=== PATIENT | male | born 1975 | race Caucasian/White ===

== ENCOUNTER 2018-07-22 05:22 | Day surgery (SDC) | payer OTHER ==
[~2018-07-22] VITALS: Ht 190.5 cm; Wt 83.0 kg
--- NOTE | ~2018-07-22 | O ---
[facility] [place] [address] OPERATIVE REPORT Name: CLYDE MOLINA Room #: DEP [facility] Yaz.Sung#: [id number] Admission: 07/22/18 Attend Phys: Rodríguez Delatorre MD Discharge: 07/22/18 Date of : 75 Report #: [id number] THIS REPORT FOR: //name// CC: Guillaume Delatorre DATE OF SERVICE: 07/22/2018 PREOPERATIVE DIAGNOSIS: Right knee medial compartment osteoarthritis. POSTOPERATIVE DIAGNOSIS: Right knee medial compartment osteoarthritis. PROCEDURE: Right medial compartment knee arthroplasty with Navio robotic assistance. SURGEON: Rodríguez Delatorre MD. HEAD HOUSEKEEPER: Shayy Gudino PA-C. INDICATIONS FOR HEAD HOUSEKEEPER: Throughout the case, extensive retraction and manipulation of the knee was required. This was afforded to me by my assistant guest services manager. ANESTHESIA: LMA with an adductor canal block. IMPLANTS: [employer]hew size 6 Oxinium Journey II medial femoral component, a size 5 ZUK tibia and a size 9 polyethylene. TOURNIQUET TIME: 73 minutes. ESTIMATED BLOOD LOSS: 25 mL. COMPLICATIONS: None. SPECIMENS: None. CONDITION UPON LEAVING THE OPERATING ROOM: Stable. INDICATION FOR PROCEDURE: The patient is a 43-year-old gentleman with severe medial compartment right knee osteoarthritis with complete loss of joint space. He had failed conservative measures for this and after discussion with him, he elected for right medial compartment knee arthroplasty. DESCRIPTION OF PROCEDURE: Risks, benefits, alternatives and complications were discussed in detail with the patient including but not limited to risk of anesthesia, risk of damage to nerves, arteries, blood vessels, risk for infection, bleeding, risk for continued knee pain and need for reoperation. [facility] [address] [place] [address] OPERATIVE REPORT Name: CLYDE MOLINA Room #: DEP [facility] M.[place].#: [id number] Admission: 07/22/18 Attend Phys: Rodríguez Delatorre MD Discharge: 07/22/18 Date of : 75 Report #: [id number] Informed consent was obtained from the patient. The right knee was appropriately marked in the preoperative holding area. IV Ancef was given for preoperative antibiotics. Adductor canal block was placed by anesthesia. He was brought to the operating room and placed in supine position on operating room table. LMA anesthesia was induced without complication. Tourniquet was placed on the right thigh. Right lower extremity was prepped and draped in normal sterile fashion. Timeout was performed properly identifying the patient and procedure as well as instrumentation. All in the operating room were in agreement. Right lower extremity was exsanguinated. Tourniquet was inflated. Tourniquet time was 73 minutes. A standard approach to the medial knee was made with 10 blade through the skin. Dissection was taken down sharply to the fascia and deep flaps were developed medially and laterally. Fresh #10 blade was used to make a medial parapatellar arthrotomy and the knee was inspected. There was severe medial compartment osteoarthritis with complete [id number] arthritis. Lateral compartment and patellofemoral compartment were well maintained. ACL was intact. It was decided to proceed with unicompartmental arthroplasty. The tibial and femoral reference pins were then placed for the Navio navigation system. The femur and tibia were then mapped using the Navio system. Intraoperative plan was made and found to be a size 6 femur and a size 5 tibia and we plan for a size 9 polyethylene. After adjusting the components to balance the flexion and extension gaps, we accepted the plan and the femoral and tibial resections were then made using the Navio bur. After this, the tibia was sized and found to be a size 5. A size 5 keeled tibial trial was placed, pinned and the peg holes were drilled. A size 6 femoral trial was placed. This was then trialed with a size 8 and then a size 9 polyethylene. The size 9 polyethylene had good balance in flexion and extension throughout the range of motion with about a millimeter of laxity throughout range of motion. After this, trial components were removed. Bony ends were thoroughly irrigated with normal saline. A final size 5 ZUK tibia with size 6 Journey twin peg Oxinium femur were cemented in place using standard cementation techniques. While the cement cured, a periarticular injection consisting of morphine, ropivacaine and epinephrine was placed around the knee joint capsule. After the cement cured, a final size 9 polyethylene was placed. A gram of vancomycin was placed deep in the joint. The fascia was closed with 0 Vicryl. Tourniquet was deflated. Hemostasis was obtained with Bovie cautery. Skin was closed with 2-0 Vicryl and 3-0 Monocryl. Dermabond and a LIZ dressing was applied. The patient tolerated this procedure well and went to the recovery room under care of anesthesia postoperatively. <ELECTRONICALLY SIGNED> By: Rodríguez Delatorre MD 07/28/18 1559 [id number] Rodríguez Delatorre MD /nt
[~2018-07-22 05:22] MED LIST: DULERA 200 MCG/13 GM INH; VENTOLIN HFA 1818 GM INH; ZANTAC 150MG T150 MG PO
[2018-07-22 06:38] VITALS: BP 131/81
[2018-07-22 16:36] VITALS: BP 131/81
== END 2018-07-22 17:06 | disposition home or self-care (01) ==
LOC: TBA 05:22 → OR 05:22 → 4E 05:22 → OR 07:15 → 4E 13:17 → OR 16:11 → ENTRNSPT 16:57 → OR 17:06
DX: M17.11 Unilateral primary osteoarthritis, right knee (principal); J45.909 Unspecified asthma, uncomplicated; K21.9 Gastro-esophageal reflux disease without esophagitis; Z87.891 Personal history of nicotine dependence; Z98.890 Other specified postprocedural states; Z79.899 Other long term (current) drug therapy; Z88.8 Allergy status to other drugs, medicaments and biological substances
CPT/HCPCS: 10783; 50010; 50101; 50415; 50954; 51130; 51225; 51771; 53078; 53370; 54118; 56527; 56528; 57095; 57103; 57109; 57110; 57113; 62110; 62900; 70005